=== PATIENT | female | born 1960 | race Caucasian/White ===

== ENCOUNTER → 2017-05-13 | Outpatient (CLI) | payer OTHER | LOC: FIMAGING 07:40 | PROVIDERS: ATTEND Nurse Practitioner | DX: Z12.31 Encounter for screening mammogram for malignant neoplasm of breast (principal) | CPT/HCPCS: G0202 ==

== ENCOUNTER → 2018-06-05 | Outpatient (CLI) | payer OTHER | LOC: CIMAGING 07:15 | PROVIDERS: ATTEND Nurse Practitioner | DX: Z12.31 Encounter for screening mammogram for malignant neoplasm of breast (principal) ==

== ENCOUNTER 2018-11-03 17:35 | Emergency (ER) | payer OTHER ==
[2018-11-03] MEDS ORDERED: NS 1,000 ML IV ONE (17:41)
[2018-11-03 18:06] LABS: PLATELET COUNT 349 10^3/uL (150-400)
--- NOTE | 2018-11-03 18:07 | EDPHY ---
H & P Stated Complaint: Epigastric pain and dark tarry stools x 24 hours Time Seen by Provider: 11/03/18 17:41 HPI/ROS: CHIEF COMPLAINT: Epigastric pain, dark tarry stools HISTORY OF PRESENT ILLNESS: The patient presents the emergency department for evaluation of 1 day of epigastric pain and several dark tarry stools. The patient denies prior history of peptic ulcer disease. She denies significant NSAID usage. She reports decreased appetite. She denies fever or vomiting. The patient drinks less than 1 glass of wine a day. She does not smoke. There is no history of malignancy. She denies significant past medical history. She complains primarily of mild epigastric discomfort. REVIEW OF SYSTEMS: A comprehensive 10 point review of systems is otherwise negative aside from elements mentioned in the history of present illness. Source: Patient Exam Limitations: No limitations - Personal History Current Tetanus Diphtheria and Acellular Pertussis (TDAP): Yes - Medical/Surgical History Hx Asthma: No Hx Chronic Respiratory Disease: No Hx Diabetes: No Hx Cardiac Disease: No Hx Renal Disease: No Hx Cirrhosis: No Hx Alcoholism: No Hx HIV/AIDS: No Hx Splenectomy or Spleen Trauma: No Other PMH: Cholecystectomy, hysterectomy - Social History Smoking Status: Never smoked - Physical Exam Exam: General Appearance: Alert, no distress Eyes: Pupils equal and round no pallor or injection ENT, Mouth: Mucous membranes moist Respiratory: There are no retractions, lungs are clear to auscultation Cardiovascular: Regular rate and rhythm Gastrointestinal: Minimal epigastric tenderness to palpation, normal bowel sounds, no right upper quadrant tenderness, no right lower quadrant tenderness Neurological: 5/5 strength noted all 4 extremities Skin: Warm and dry, no rashes Musculoskeletal: Neck is supple nontender Extremities: symmetrical, full range of motion Constitutional: Initial Vital Signs Temperature (C) 36.7 C 11/03/18 17:46 Heart Rate 74 11/03/18 17:46 Respiratory Rate 16 11/03/18 17:46 Blood Pressure 183/92 H 11/03/18 17:46 O2 Sat (%) 95 11/03/18 17:46 Allergies/Adverse Reactions: Penicillins Allergy (Verified 11/03/18 17:45) Home Medications: Medication Instructions Recorded Pantoprazole Sodium [Protonix 40mg 40 mg PO DAILY #30 tab 11/03/18 (RX)] Medical Decision Making ED Course/Re-evaluation: Patient presents the ED for evaluation of epigastric discomfort. The patient has a benign abdominal examination. She reports that she has been having some dark stools. The patient is hemodynamically stable. She has not been using NSAIDs. Rectal examination demonstrates heme-negative brown stool. The patient has a normal CBC, normal serum chemistries, normal liver function test and normal lipase. This point time I do feel it is reasonable to treat the patient for gastritis and possible peptic ulcer disease. She will be advised to begin taking Protonix 40 mg once a day. The patient has been advised to return to the ED for markedly worsening symptoms or other concerns. The patient has been given the contact number of our on-call o and m supervisor for any ongoing symptoms of dyspepsia and epigastric pain. I re-evaluated the patient prior to discharge. She feels better after a GI cocktail. The patient is discharged home with customary aftercare instructions and return precautions. Differential Diagnosis: Differential diagnosis considered includes peptic ulcer disease, gastritis, upper GI bleed, lower GI bleed - Data Points Laboratory Results: Laboratory Results 11/03/18 17:55 11/03/18 17:55 11/03/18 11/03/18 11/03/18 18:10 17:55 17:55 WBC RBC Hgb Hct MCV MCH MCHC RDW Plt Count MPV Neut % (Auto) Lymph % (Auto) [place] % (Auto) Eos % (Auto) Baso % (Auto) Nucleat RBC Rel Count Absolute Neuts (auto) Absolute Lymphs (auto) Absolute Monos (auto) Absolute Eos (auto) Absolute Basos (auto) Absolute Nucleated RBC Immature Gran % Immature Gran # PT 12.3 SEC SEC (12.0-15.0) INR 0.95 (0.83-1.16) APTT 31.4 SEC SEC (23.0-38.0) Sodium 139 mEq/L mEq/L (135-145) Potassium 3.8 mEq/L mEq/L (3.5-5.2) Chloride 106 mEq/L mEq/L (97-110) Carbon Dioxide 25 mEq/l mEq/l (22-31) Anion Gap 8 mEq/L mEq/L (6-14) BUN 10 mg/dL mg/dL (7-23) Creatinine 0.8 mg/dL mg/dL (0.6-1.0) Estimated GFR > 60 Glucose 90 mg/dL mg/dL (70-100) Calcium 9.7 mg/dL mg/dL (8.5-10.4) Total Bilirubin 0.7 mg/dL mg/dL (0.1-1.4) Conjugated Bilirubin 0.1 mg/dL mg/dL (0.0-0.5) Unconjugated Bilirubin 0.6 mg/dL mg/dL (0.0-1.1) AST 27 IU/L IU/L (14-46) ALT 40 IU/L IU/L (9-52) Alkaline Phosphatase 66 IU/L IU/L (38-126) Total Protein 7.3 g/dL g/dL (6.3-8.2) Albumin 4.4 g/dL g/dL (3.5-5.0) Lipase 109 IU/L IU/L (23-300) Stool Occult Bld Scrn NEGATIVE (NEGATIVE) 11/03/18 17:55 WBC 4.39 10^3/uL 10^3/uL (3.80-9.50) RBC 4.91 10^6/uL 10^6/uL (4.18-5.33) Hgb 15.0 g/dL g/dL (12.6-16.3) Hct 45.0 % % (38.0-47.0) MCV 91.6 fL fL (81.5-99.8) MCH 30.5 pg pg (27.9-34.1) MCHC 33.3 g/dL g/dL (32.4-36.7) RDW 12.6 % % (11.5-15.2) Plt Count 349 10^3/uL 10^3/uL (150-400) MPV 9.4 fL fL (8.7-11.7) Neut % (Auto) 46.7 % % (39.3-74.2) Lymph % (Auto) 39.2 % % (15.0-45.0) [place] % (Auto) 10.7 % % (4.5-13.0) Eos % (Auto) 2.1 % % (0.6-7.6) Baso % (Auto) 1.1 % % (0.3-1.7) Nucleat RBC Rel Count 0.0 % % (0.0-0.2) Absolute Neuts (auto) 2.05 10^3/uL 10^3/uL (1.70-6.50) Absolute Lymphs (auto) 1.72 10^3/uL 10^3/uL (1.00-3.00) Absolute Monos (auto) 0.47 10^3/uL 10^3/uL (0.30-0.80) Absolute Eos (auto) 0.09 10^3/uL 10^3/uL (0.03-0.40) Absolute Basos (auto) 0.05 10^3/uL 10^3/uL (0.02-0.10) Absolute Nucleated RBC 0.00 10^3/uL 10^3/uL (0-0.01) Immature Gran % 0.2 % % (0.0-1.1) Immature Gran # 0.01 10^3/uL 10^3/uL (0.00-0.10) PT INR APTT Sodium Potassium Chloride Carbon Dioxide Anion Gap BUN Creatinine Estimated GFR Glucose Calcium Total Bilirubin Conjugated Bilirubin Unconjugated Bilirubin AST ALT Alkaline Phosphatase Total Protein Albumin Lipase Stool Occult Bld Scrn Medications Given: Discontinued Medications Sodium Chloride (Ns) 1,000 mls @ 0 mls/hr IV EDNOW ONE; Wide Open PRN Reason: Protocol Stop: 11/03/18 17:42 Last Admin: 11/03/18 17:56 Dose: 1,000 mls Departure - Departure Disposition: Home, Routine, Self-Care Clinical Impression: Epigastric pain Condition: Good Instructions: Epigastric Pain (ED) Additional Instructions: 1. Your laboratory testing demonstrates no evidence of obvious bleeding. 2. It is certainly possible your experiencing a mild ulcer. I do recommend beginning a prescription strength antacid. 3. Please return to the ED for markedly worsening pain, signs of heavy bleeding , lightheadedness or other concerns. 4. You have been given the number of our on-call o and m supervisor for any mild unimproved symptoms. Referrals: Elvin Kaba MD [Medical Doctor] - As per Instructions
[2018-11-03 18:16] LABS: INR 0.95 (0.83-1.16); PROTIME(PATIENT) 12.3 SEC (12.0-15.0)
[2018-11-03] MEDS ORDERED: HYOSCYAMINE SULFATE 0.125 MG TAB PO ONE (18:40)
[2018-11-03] MEDS ORDERED: LIDOCAINE 2% VISCOUS 15 ML UDCUP PO ONE (18:40)
[2018-11-03] MEDS ORDERED: MAG HYDROX/AL HYDROX/SIMETH 30 ML UDCUP PO ONE (18:40)
[2018-11-03 19:43] VITALS: BP 147/95
== END 2018-11-03 19:33 | disposition home or self-care (01) ==
DX: R10.13 Epigastric pain (principal); E86.9 Volume depletion, unspecified